=== PATIENT | female | born 1975 ===

== ENCOUNTER 2017-12-08 08:17 | Day surgery (SDC) | payer BC ==
[2017-12-07 10:57] VITALS: BMI 23.9
[2017-12-08] MEDS ORDERED: Lactated Ringer's 1,000 ML IV ONE ×4 (09:50→14:40)
[2017-12-08 09:52] VITALS: RESP 18
[2017-12-08 09:57] LABS: HEMOGLOBIN 12.9 g/dL (12.0-16.0); MEAN CELL VOLUME 93.4 fl (81.0-99.0); MEAN CORPUSCULAR HEMOGLOBIN 31.4 pg (27.0-31.0); MEAN CORPUSCULAR HGB CONC 33.7 g/dL (33.0-37.0); RBC 4.11 Mil/uL (3.80-5.20); WHITE BLOOD COUNT 4.9 K/uL (4.8-10.8)
[2017-12-08] MEDS ORDERED: Rocuronium 10 mg/ml (5 ml) ONE (10:21)
[2017-12-08] MEDS ORDERED: Succinylcholine 200 mg/10 ml Inj IV ONE (10:21)
[2017-12-08] MEDS ORDERED: Propofol 10 mg/ml Inj (20 ML) ONE (10:21)
[2017-12-08] MEDS ORDERED: ePHEDrine 50 mg/ml Inj ONE (10:21)
[2017-12-08] MEDS ORDERED: Midazolam 2 MG/2 ML VIAL ONE (10:21)
[2017-12-08] MEDS ORDERED: Lidocaine 4% (Laryng-O-Jet) Kit MM ONE (10:22)
[2017-12-08] MEDS ORDERED: ceFAZolin IV 2 gm in Dextrose 2 GM/50 ML BAG IVPB ONE (10:29)
[2017-12-08] MEDS ORDERED: Bupivacaine HCl 0.25% PF (30 ml) Inj ONE (10:29)
[2017-12-08] MEDS ORDERED: Neostigmine 1:1000 (1 mg/ml) Inj ONE (12:54)
[2017-12-08] MEDS ORDERED: Oxycodone/Acetaminophen 5/325 mg Tab PO PRN (13:40)
[2017-12-08] MEDS ORDERED: DiphenhydrAMINE 50 mg/ml Inj IVP PRN (13:42)
[2017-12-08] MEDS ORDERED: HYDROmorphone 0.5 mg/0.5 ml ISec IVP PRN (13:42)
[2017-12-08] MEDS ORDERED: Lactated Ringer's 1,000 ML IV SCH ×2 (13:45)
[2017-12-08 19:25] VITALS: BP 134/73; PULSE 69; TEMP 97.7; O2SAT 97
--- NOTE | 2017-12-11 14:27 | OP ---
PROCEDURE DATE: 12/08/2017 SURGEON: Zeeshan Prasad MD TE[employer] TREE FARMER: 1. Bar Zacarias MD 2. Armani Mills 3. Noman Singer ANESTHESIOLOGIST: Laly Goldman MD ANESTHETIC: General Endo PREOPERATIVE DIAGNOSES: 1. Incapacitating pelvic pain. 2. Incapacitating abdominal pain. 3. Abnormal uterine bleeding. 4. Gastrointestinal and genitourinary symptoms. 5. History of previous failed medical surgical therapy. 6. History of severe endometriosis and pelvic adhesions. 7. Rule out interstitial cystitis. 8. Adenomyosis POSTOPERATIVE DIAGNOSES: 1. Incapacitating pelvic pain. 2. Incapacitating abdominal pain. 3. Abnormal uterine bleeding. 4. pelvic endometriosis. 5. History of previous failed medical surgical therapy. OPERATION PERFORMED: 1. Examination under anesthesia. 2. Video_assisted hysteroscopy. 3. Robotic da Henrik laparoscopy 4. .Bilateral ureterolysis. 5. Multiple peritoneal biopsies and excision of endometriosis. 6. Treatment of endometriosis 7. Bilateral salpingo_ovariolytis. 8. Cystoscopy. 9. . Bilateral ureteral catheterization and injection of IC-Green dye. Dr. Zacarias from General Surgery was consulted to perform an appendectomy and he will dictate that separately. COMPLICATIONS: None. SAMPLES: Sent to Pathology DRAINS: ESTIMATED BLOOD LOSS: Minimal. FINDINGS: Genitalia normal, external genitalia, cervix normal without lesions or polyps. Hysteroscopy no lesions visualized. Cystoscopy was performed to rule out endometriosis of bladder mucosa and also interstitial cystitis, also injury. The bladder was normal with no evidence of stone, trigonitis or cystitis. Positive jet flow visualized in both ureters. Laparoscopy: upper abdomen was normal, gallbladder was normal, liver edges appeared to be normal. Ascending colon and transverse were normal. The appendix appeared to be abnormal with both fibrosis and thickening. There was evidence of severe adhesions, fibrosis and endometriosis of the rectovaginal septum and attachment of the bowel to the posterior aspect of the uterus and to both the right and left adnexa. Fallopian tubes appeared to have some inflammatory changes of adhesions, but overall appeared to be normal. CONSENT: The patient had been thoroughly evaluated and counseled regarding pros and cons of the procedure, the reasonable alternative, and the possible complications. She understood and accepted the risks involved. Appropriate literature was provided to the patient. The patient was in understanding that given her history and presurgical exam, she knows that she was a high risk and average patient. She accepted all the risks involved and all the questions had been answered to her satisfaction. DESCRIPTION OF PROCEDURE: Initiation of the case: After adequate anesthesia was obtained, the patient was placed in the dorsal lithotomy position with extreme care of placement of the patient without hyperextension or hyperflexing the hips. At this point, the patient was prepped and draped, the surgeon was gowned and gloved. A time-out was taken according to the hospital procedure and the procedure was started. At this point, we performed the cystoscopy and bilateral ureteral catheterization. A cystoscope was inserted into the bladder , under direct visualization and the bladder was visualized. The bladder was free of lesions, tumors. There was no evidence of interstitial cystitis, and there was only a mild amount of trigonitis. At this point, both ureters were identified and appeared to be in normal anatomical position. At this point, utilizing an open-ended 5-Zimbabwean catheter, the left ureter was catheterized all the way to the distal ureter, and a 5 mL of IC-Green were injected into the distal ureter. Similarly, on the contralateral ureter, the ureter was catheterized all the way to the distal ureter, and a 5 mL of IC-Green were injected into the distal ureter. At this point, the stents were removed, and the hysteroscope was removed and a 16-Zimbabwean Burgess was placed into the bladder. At this point, we proceeded with a hysteroscopy. A speculum was placed in the vagina, and the anterior lip of the cervix was grasped. The cervix was dilated and a hysteroscope was inserted into the cavity. The cavity appeared to be of normal size, At this point, we proceeded with placement of the trocars and docking of the da Henrik Xi robot. The surgeons were regowned and regloved, and an open laparoscopy was performed by making an incision below the umbilicus, and the fascia was incised, and the peritoneum was entered in the blunt fashion. The cannula was inserted and the abdomen was insufflated, and under direct visualization 3 additional ports were inserted, left upper quadrant , left mid quadrant and right upper quadrant. At this point, the da Henrik Xi robot was brought into the field and docked, and the instruments were inserted under direct visualization. With extreme care not to injure the bowel or any other area. As per the dictation, the upper abdomen appeared to be normal with no evidence of any lesions. At this point, we proceeded with the left ureterolysis. The left ureter appeared slightly dilated and it was clearly identified utilizing fluorescent technology. An incision was made on the peritoneum at the top of the pelvic brim, and incision was then carried down all the way opening the peritoneum and all the way down from the pelvic brim all the way down to the ovarian fossa extending the incision below the ovary. It was a progressive dissection where the ureter was progressively lateralized and the peritoneum medialized, thus freeing the ureter all the way down to the crossing of the uterine vessels. After this was done and the ureter was freed and lateralized and a large area of peritoneum, which had been opened up was excised and sent to pathology. At this point, we proceeded with the right ureterolysis. The right ureter was identified and again utilizing florescent technology, the retroperitoneal space was entered and a full dissection was performed entering the retroperitoneal space and dissecting the ureter, removing the ureter laterally and the peritoneum medially. A full dissection was performed all the way down to the ovarian fossa, on the crossing of the uterine arteries. A large area of peritoneum containing endometriosis was also dissected and sent to Pathology. At this point, we proceeded with a right ovariolysis. . At this point, we proceeded with a treatment of endometriosis and excision of endometriosis. On the left hand side, a large area of peritoneum, where containing endometriosis was excised in the left ovarian fossa with the upper margin of the excision at the utero_ovarian ligament all the way down to the uterosacral ligament. The rectovaginal area was then dissected and the space was opened, and we were able to dissect the rectum away from the posterior aspect of the cervix. Additional areas of endometriosis were dissected from the posterior aspect of the Uterus. At this point, we proceeded with excision of the endometriosis on the right hand side where similarly in a full excision of endometriosis was performed by performing incision from starting at the right utero_ovarian ligament all the way down to the right uterosacral ligament. At this point, it was checked for hemostasis and appeared to be excellent. All the endometriosis had been excised. At this point, we performed the ablation of inflamed peritoneum, utilizing the J_plasma device. There were inflammatory areas in the posterior aspect of the uterus, which were not endometriotic, but they were purely inflammatory and these were not excisable, as they were not endometriotic. Therefore, we proceeded with ablation of such area utilizing the J plasma. Once this was done, it was checked for hemostasis and appeared to be excellent. The consult was handed to Dr. Zacarias, who performed the appendectomy and he will dictate that separately. After this was done, it was checked for hemostasis and appeared to be excellent. The pelvis was irrigated. The da Henrik Xi robot was removed. The abdomen desufflated. The instruments were removed. The incisions were closed in layers with 0 PDS for the fascia and 4-0 Monocryl for the skin. The patient was awakened up and taken to recovery room in excellent condition. MD VANIA Pitts
--- NOTE | 2017-12-24 15:10 | PCM.OP ---
Operative Report - Operative Report Date of Surgery/Procedure: 12/08/17 Time of Surgery/Procedure: 11:00 Surgeon: Dr. Bar Zacarias Salesperson Florist Supplies: Dr. Zeeshan Prasad Anesthesia/Sedation: general/Dr. Goldman Pre-Operative Diagnosis: abdominal pain and endometriosis Post-Operative Diagnosis: same Indication for Surgery: as above Operative Findings: as above Procedure/Operation Description: 1-Appendectomy. Brief Histroy: This 42 year old woman was laready brought to the operating room by Dr. Prasad when he requested an intraoperative consultation for the appndix. Description of the Procdure: The patient had already been brought to the operating room by Dr. Prasad (separate dictation). After taking control of the robotic console the appendix was retracted anteriorly and the mesentery as dessicated with electrocautery to the base. Three 3-0 vicryl endoloops were palced for ligature and the appendix was trnasected and sent to pathology separatetly. Hemostasis was deemed adequate. The operation was then turned over to Dr. Prasad (separate dictation). Estimated Blood Loss: 3 cc Complications: none Specimen: appendix Discharge & Condition: stable
== END 2017-12-08 19:40 | disposition home or self-care (01) ==
LOC: H.OPSURG 08:17
PROVIDERS: ATTEND Obstetrics & Gynecology Reproductive Endocrinology
DX: R10.2 Pelvic and perineal pain (principal); N97.9 Female infertility, unspecified; N80.3 Endometriosis of pelvic peritoneum; N93.9 Abnormal uterine and vaginal bleeding, unspecified; N80.1 Endometriosis of ovary; N80.0 Endometriosis of uterus; N73.6 Female pelvic peritoneal adhesions (postinfective); N13.4 Hydroureter
CPT/HCPCS: 36415; 44970; 58558; 58662; 85027; 86850; 86870; 86900; 88304; 88305; C1729; J0330; J0690; J1170; J1885; J2001; J2250; J2704; J2710; J3010; J7030; J7120